=== PATIENT | male | born 1980 | race Caucasian/White ===

== ENCOUNTER 2017-07-11 19:59 | Emergency (ER) | payer SELFPAY ==
[2017-07-11 20:03] VITALS: BP 133/75; PULSE 74; TEMP 98.4; BMI 74.7
--- NOTE | 2017-07-11 20:04 | PDOC ---
Rapid Medical Evaluation Chief Complaint: Back Pain Time Seen by Provider: 07/11/17 20:02 Medical Evaluation: 07/11/17 20:02 Healthy 36 year old male presenting with left lower back pain since March. Pain is exacerbated by movement and partially relieved with ibuprofen. No lower extremity weakness/numbness or urinary symptoms. -To FT for further evaluation
--- NOTE | 2017-07-11 20:09 | PDOC ---
History of Present Illness <Samara Salgado - Last Filed: 07/11/17 20:35> - History of Present Illness Initial Comments: 07/11/17 20:41 Patient is a 36 year old hong konger speaking male, with no significant PMHx, who presents with left lower back pain since March. Patient states that over the last week his back pain has exacerbated after shoveling snow. He describes the pain as spasm-like, constant, rates the pain 7-8/10. He denies recent loss of bladder or bowel incontinence. He denies numbness or tingling to the groin region. He denies dysuria, hematuria, or any other urinary complaints. He states he took 2 Advil around 2 hours prior to arriving to the ER. <Vicki Buckner - Last Filed: 07/11/17 20:45> - General Chief Complaint: Back Pain Stated Complaint: BACK PAIN Time Seen by Provider: 07/11/17 20:02 Past History - Past Medical History COPD: No - Suicide/Smoking/Psychosocial Hx Smoking History: Never smoked Have you smoked in the past 12 months: No Information on smoking cessation initiated: No Hx Alcohol Use: No Drug/Substance Use Hx: No Substance Use Type: None <Samara Salgado - Last Filed: 07/11/17 20:35> <Vicki Buckner - Last Filed: 07/11/17 20:45> - Past Medical History Allergies/Adverse Reactions: Allergies Allergy/AdvReac Type Severity Reaction Status Date / Time No Known Allergies Allergy Verified 07/11/17 20:04 Home Medications: Ambulatory Orders Cyclobenzaprine HCl [Flexeril -] 10 mg PO HS #10 tablet 07/11/17 Ibuprofen 800 mg PO TID #30 tablet 07/11/17 Review of Systems - Review of Systems Comments:: 07/11/17 20:41 GENERAL/CONSTITUTIONAL: No fever or chills. No weakness. HEAD, EYES, EARS, NOSE AND THROAT: No change in vision. No ear pain or discharge. No sore throat. GASTROINTESTINAL: No nausea, vomiting, diarrhea or constipation. GENITOURINARY: No dysuria, frequency, or change in urination. CARDIOVASCULAR: No chest pain or shortness of breath. RESPIRATORY: No cough, wheezing, or hemoptysis. MUSCULOSKELETAL: +left lower lumbar pain. No joint pain. No neck pain. SKIN: No rash NEUROLOGIC: No headache, vertigo, loss of consciousness, or change in strength/ sensation. ENDOCRINE: No increased thirst. No abnormal weight change. HEMATOLOGIC/LYMPHATIC: No anemia, easy bleeding, or history of blood clots. ALLERGIC/IMMUNOLOGIC: No hives or skin allergy. <Vicki Buckner - Last Filed: 07/11/17 20:45> *Physical Exam - Vital Signs Last Vital Signs Temp Pulse Resp BP Pulse Ox 98.4 F 74 20 133/75 97 07/11/17 20:00 07/11/17 20:00 07/11/17 20:00 07/11/17 20:00 07/11/17 20:00 <Samara Salgado - Last Filed: 07/11/17 20:35> - Vital Signs Last Vital Signs Temp Pulse Resp BP Pulse Ox 98.4 F 74 20 133/75 97 07/11/17 20:00 07/11/17 20:00 07/11/17 20:00 07/11/17 20:00 07/11/17 20:00 - Physical Exam Comments: 07/11/17 20:42 GENERAL: Awake, alert, and fully oriented, in no acute distress HEAD: No signs of trauma BACK: Left lumbar back tenderness to palpation (L3-L5). Palpable knot. EXTREMITIES: Normal range of motion, no edema. No clubbing or cyanosis. No cords, erythema, or tenderness NEUROLOGICAL: Cranial nerves II through XII grossly intact. Normal speech, normal gait <Vicki Buckner - Last Filed: 07/11/17 20:45> Medical Decision Making - Medical Decision Making 07/11/17 20:35 A portion of this note was documented by scribe services under my direction. I have reviewed the details of the note, within reason, and agree with the documentation with the following case summary and management plan written by me. <Samara Salgado - Last Filed: 07/11/17 20:35> *DC/Admit/Observation/Transfer - Discharge Dispostion Admit: No <Samara Salgado - Last Filed: 07/11/17 20:35> - Attestations Scribe Attestion: 07/11/17 20:45 Documentation prepared by Vicki Buckner, acting as medical appointment clerk for Samara Damian AURA <SitaVicki - Last Filed: 07/11/17 20:45> Diagnosis at time of Disposition: Low back pain Qualifiers: Chronicity: acute Back pain laterality: left Sciatica presence: without sciatica Qualified Code(s): M54.5 - Low back pain - Discharge Dispostion Disposition: HOME Condition at time of disposition: Stable - Prescriptions Prescriptions: Cyclobenzaprine HCl [Flexeril -] 10 mg PO HS #10 tablet Ibuprofen 800 mg PO TID #30 tablet - Referrals Referrals: Delfino Najera MD [Staff Physician] - - Patient Instructions Printed Discharge Instructions: DI for Low Back Pain Additional Instructions: You have low back pain due to a muscle spasm. Please take ibuprofen 800 mg 3 times a day not to exceed 3000 mg a day. You were also prescribed Flexeril. Take the medication before you go to bed. Do not drive after taking this medication as it may make you sleepy. You may use warm compresses on your back to help with your symptoms. Please follow-up with your primary care doctor. Return to the emergency department if you have worsening back pain, bladder or bowel incontinence, numbness and tingling in her legs, changes in the way you walk, or any new or worsening symptoms. Usted tiene dolor de espalda baja debido a un espasmo muscular. [employer] ibuprofeno 800 mg 3 veces al da que no exceda los 3000 mg por da. Tambin te recetaron Flexeril. [employer] la medicina antes de acostarse. No conduzca despus de cain grzegorz medicamento ya que puede causarle sueo. Puede usar compresas tibias en jacques espalda para ayudar con izzy sntomas. Por favor haleigh un seguimiento con jacques m dico de atencin primaria. Regrese al servicio de urgencias si tiene un empeoramiento del dolor de espalda , incontinencia de vejiga o intestino, entumecimiento y hormigueo en las piernas , cambios en la forma de caminar o cualquier sntoma nuevo o que empeora. Print Language: CHINESE - Post Discharge Activity Forms/Work/School Notes: Back to Work
[2017-07-11] MEDS ORDERED: KETOROLAC TROMETHAMINE 60 MG/2 ML VIAL IM ONE (20:34)
[2017-07-11] MEDS ORDERED: CYCLOBENZAPRINE HCL 10 MG TABLET (FP) PO ONE (20:34)
[2017-07-11] MEDS ORDERED: CYCLOBENZAPRINE HCL 10 MG TABLET (FP) ONE (20:38)
[2017-07-11] MEDS ORDERED: KETOROLAC TROMETHAMINE 60 MG/2 ML VIAL ONE (20:38)
== END 2017-07-11 20:56 | disposition home or self-care (01) ==
LOC: JERFT 19:59
PROC: 3E0233Z Introduction of Anti-inflammatory into Muscle, Percutaneous Approach (ICD-10-PCS; principal; 2017-07-11)
DX: M54.5 Low back pain (principal); X50.0XXA Overexertion from strenuous movement or load, initial encounter; X50.9XXA Other and unspecified overexertion or strenuous movements or postures, initial encounter; Y93.H1 Activity, digging, shoveling and raking; Y92.89 Other specified places as the place of occurrence of the external cause; Y99.8 Other external cause status
CPT/HCPCS: 99281-25